=== PATIENT | male | born 1990 | race American Indian/Alaskan Native ===

== ENCOUNTER 2017-02-13 16:50 | Emergency (ER) | payer SELFPAY ==
[2017-02-13] MEDS ORDERED: TETRACAINE 0.5% OU ONE (20:00)
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
[2017-02-13] MEDS ORDERED: BOOSTRIX IM ONE (20:09)
[2017-02-13 20:45] VITALS: BP 132/98
== END 2017-02-13 20:46 | disposition home or self-care (01) ==
LOC: ED 16:50
DX: S05.02XA Injury of conjunctiva and corneal abrasion without foreign body, left eye, initial encounter (principal); F17.200 Nicotine dependence, unspecified, uncomplicated; W20.8XXA Other cause of strike by thrown, projected or falling object, initial encounter; Y93.89 Activity, other specified; Y92.89 Other specified places as the place of occurrence of the external cause; Y99.8 Other external cause status
CPT/HCPCS: 90471; 90715

== ENCOUNTER 2018-12-23 06:27 | Emergency (ER) | payer SELFPAY ==
[2018-12-23 07:15] VITALS: BP 144/90
--- NOTE | 2018-12-23 08:26 | Emergency Department Report ---
ED Rash HPI - HPI Chief Complaint: Skin Rash Stated Complaint: RASH IRRITATION IN PRIVATES Time Seen by Provider: 12/23/18 08:25 Duration: 4 Days Location: Other (penis) Suspected Cause: Unknown Rash Symptoms: Yes Itching, Yes Blistering (vesicles), No Facial Swelling, No Tongue/Oral Swelling, No Breathing Difficulties, No Choking Sensation, No Wheezing/Dyspnea, No Peeling, No Fever, No Lightheaded, No Malaise, No Myalgias Severity: mild (3/10 with a chin) Other History: This is a 27-year-old male who reports that 4 days ago he had rash that spread on his penis area. Reports pain 3/10 that is burning and also reported itching now. Denies any history of STD or any concern for STD. Denies any abdominal pain, urinary burning frequency or urgency or any penile discharge. Denies any fever or chills or nausea or vomiting. Denies any back pain. ED Review of Systems ROS: Stated complaint: RASH IRRITATION IN PRIVATES Other details as noted in HPI Constitutional: denies: chills, fever ENT: denies: throat pain Respiratory: denies: cough, shortness of breath, wheezing Cardiovascular: denies: chest pain, palpitations Gastrointestinal: denies: abdominal pain, nausea, vomiting Genitourinary: other (penile rash). denies: urgency, dysuria, discharge, testicular pain, testicular mass Skin: rash, pruritus Neurological: denies: headache ED Past Medical Hx - Past Medical History Previous Medical History?: No Hx Diabetes: No - Surgical History Past Surgical History?: No - Family History Family history: hypertension - Social History Smoking Status: Current Every Day Smoker Substance Use Type: Alcohol, Marijuana - Medications Home Medications: Home Medications Medication Instructions Recorded Confirmed Last Taken Type Gentamicin 0.3% Ophth Soln 2 drops OP Q4H #1 bottle 02/13/17 Unknown Rx Ketorolac Tromethamine [Acular 1 drop OP QID #1 bottle 02/13/17 Unknown Rx 0.5% Opth Soln] Acyclovir 800 mg PO Q8H 7 Days #21 tablet 12/23/18 Unknown Rx Ketoconazole 2% [Nizoral] 15 gm TP BID 1 Days #1 tube 12/23/18 Unknown Rx Rash Exam - Exam General: Vital signs noted. No distress. Alert and acting appropriately. This is a 27-year-old male well-nourished well-developed in no acute distress HEENT: No Periorbital Edema, No Conjuctival Injection, No Chemosis, No Perioral Edema, No Tongue Edema, No Uvular Edema, No Compromised Airway, No Drooling Lungs: Yes Good Air Exchange, No Wheezes, No Ronchi, No Stridor, No Cough, No Labored Respirations, No Retractions, No Use of Accessory Muscles, No Other Abnormal Lung Sounds Skin: Yes Tenderness (itching), Yes Erythema, Yes Other (noted vesicular rash to distal penile shaft that is grouped.), No Urticarial Rash, No Maculopapular Rash, No Morbilliform rash, No Bulla(e), No Excoriations, No Weeping, No Edema, No Encrustations Other: Positive: Abdomen Normal, Neurologic Normal, Musculoskeletal Normal ED Course Vital Signs 12/23/18 07:14 Temperature 96.7 F L Pulse Rate 64 Respiratory 18 Rate Blood Pressure 144/90 O2 Sat by Pulse 98 Oximetry - Reevaluation(s) Reevaluation #1: 12/23/18 09:01 Patient stable throughout ED course ED Medical Decision Making - Medical Decision Making This is a 27-year-old male here for rash to penis 4 days. 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 Herpes culture sent and awaits results. I discussed with him diagnosis, treatment plan and need to follow up with all department nurse [facility] in 7-10 days. I also discussed with him that if area becomes worse or return to emergency room otherwise follow-up w [facility] or some outside Medical Center and he agrees. Patient is stable and discharged home with a prescription for acyclovir and ketoconazole Critical care attestation.: If time is entered above; I have spent that time in minutes in the direct care of this critically ill patient, excluding procedure time. ED Disposition Clinical Impression: Vesicular eruption, localized Disposition: DC-01 TO HOME OR SELFCARE Is pt being admited?: No Does the pt Need Aspirin: No Condition: Stable Instructions: Acute Rash (ED), Genital Herpes Simplex (ED) Additional Instructions: Please apply fungal cream to effected side and take the medication as prescribed. Refrain from having sexual activity until herpes this is resulted. You can come to the medical records department within 7 days with your ID to have results. Increase your fluid intake and practice safe sex. Referrals: LANE URBANO MD [Primary Care Provider] - 7-10 days IVÁN LOCKE MD [Staff Physician] - 7-10 days Forms: Work/School Release Form(ED)
== END 2018-12-23 09:18 | disposition home or self-care (01) ==
LOC: ED 06:27
DX: L27.1 Localized skin eruption due to drugs and medicaments taken internally (principal); F17.200 Nicotine dependence, unspecified, uncomplicated
CPT/HCPCS: 36415; 87255; 99281

== ENCOUNTER 2019-10-02 14:45 | Emergency (ER) | payer SELFPAY ==
[2019-10-02 14:54] VITALS: BP 123/84
--- NOTE | 2019-10-02 16:11 | Emergency Department Report ---
Eye Injury/Foreign Body - HPI Duration: 2 Days Eye Location: Left Severity: Moderate Tetanus Status: Up to Date Eye Symptoms: Eye Pain: Yes, Blurred Vision: No, Eye Redness: No, Grinding/Hammering Metal: No, Used Eye Protection: No, Contact Lens Use: No, Recalls Injury: No, Photophobia: No Other History: 28-year-old male presents to ED complaining of eye irritation past couple days. he denies any other symptoms, trauma to the eye or injuries to the eye ED Review of Systems ROS: Stated complaint: LT EYE PAIN/REDNESS Other details as noted in HPI Comment: All other systems reviewed and negative ED Past Medical Hx - Past Medical History Previous Medical History?: No Hx Diabetes: No - Surgical History Past Surgical History?: No - Social History Smoking Status: Current Every Day Smoker Substance Use Type: Alcohol, Marijuana - Medications Home Medications: Home Medications Medication Instructions Recorded Confirmed Last Taken Type Gentamicin 0.3% Ophth Soln 2 drops OP Q4H #1 bottle 02/13/17 Unknown Rx Ketorolac Tromethamine [Acular 1 drop OP QID #1 bottle 02/13/17 Unknown Rx 0.5% Opth Soln] Acyclovir 800 mg PO Q8H 7 Days #21 tablet 12/23/18 Unknown Rx Ketoconazole 2% [Nizoral] 15 gm TP BID 1 Days #1 tube 12/23/18 Unknown Rx Eye Injury Exam - Exam General: Vital signs noted. No distress. Alert and acting appropriately. PEERLA stye to left eye no conjunctiva erythema ED Course Vital Signs 10/02/19 14:53 Temperature 98.3 F Pulse Rate 98 H Respiratory 18 Rate Blood Pressure 123/84 O2 Sat by Pulse 98 Oximetry ED Medical Decision Making - Medical Decision Making 28-year-old male presents with irritation to his arm Discussed the patient this is not a medical emergency. Discussed the patient to follow-up assessment medical on Friday. Referrals given. Patient understands instructions. Critical care attestation.: If time is entered above; I have spent that time in minutes in the direct care of this critically ill patient, excluding procedure time. ED Disposition Clinical Impression: Hordeolum externum (stye) Disposition: MED SCREENING EXAM-LEFT Is pt being admited?: No Does the pt Need Aspirin: No Condition: Stable Instructions: Rickie (ED) Additional Instructions: follow up with [facility] on friday Referrals: L[facility] URBANO MD [Primary Care Provider] - 3-5 Days Forms: Work/School Release Form(ED) Time of Disposition: 16:36
== END 2019-10-02 16:39 | disposition left against medical advice (07) ==
LOC: ED 14:45
DX: H00.016 Hordeolum externum left eye, unspecified eyelid (principal); F17.200 Nicotine dependence, unspecified, uncomplicated; F12.10 Cannabis abuse, uncomplicated
CPT/HCPCS: 99281